=== PATIENT | male | born 1955 | race African-American/Black ===

== ENCOUNTER 2019-11-18 08:51 | Inpatient (IN) | payer OTHER ==
[~2019-11-18] VITALS: Ht 185.4 cm; Wt 81.0 kg
[2019-11-18 08:51] VITALS: BP 143/74
[2019-11-18] MEDS ORDERED: TOPROL XL100 MG PO ×2 (09:29→14:10)
[2019-11-18] MEDS ORDERED: BUTALB-APAP-CA1 EACH PO (09:29)
[2019-11-18] MEDS ORDERED: CARDIZEM SR 60M60 MG PO (09:29)
[2019-11-18] MEDS ORDERED: NORVASC 2.5 MG2.5 M1 PO (09:30)
[2019-11-18] MEDS ORDERED: OXYCONTIN10 M1 PO (09:30)
[2019-11-18 09:31] LABS: BASOPHILS 0.4 % (0.0-2.0); EOSINOPHILS 0.1 % (0.0-3.0); HEMATOCRIT 32.3 % (42.0-52.0); HEMOGLOBIN 10.9 gm/dL (14.0-18.0); LYMPHOCYTES 5.2 % (24.0-44.0); MCH 31.6 pg (26.0-34.0); MCHC 33.6 g/dL (28.0-37.0); MCV 94.1 fL (80.0-100.0); PLATELET COUNT 255 thou/uL (150-400); POLYS 86.3 % (36.0-66.0); RBC 3.44 mil/uL (4.50-6.00); RDW 19.1 % (10.5-14.5); WBC 9.3 thou/uL (4.0-11.0)
[2019-11-18 09:48] LABS: APTT 36.6 Seconds (24.5-32.8)
[2019-11-18 09:51] LABS: ALBUMIN 2.2 g/dL (3.4-5.0); ANION GAP 14 mmol/L (7-16); BUN 7 mg/dL (7-18); CALCIUM 7.9 mg/dL (8.5-10.1); CHLORIDE 106 mmol/L (98-107); CO2 20 mmol/L (21-32); CREATININE 0.8 mg/dL (0.7-1.3); DIRECT BILIRUBIN 0.3 mg/dL (<0.1-0.2); GLUCOSE 142 mg/dL (74-106); SGOT 10 U/L (15-37); SGPT 8 U/L (30-65); SODIUM 140 mmol/L (136-145); TOTAL BILIRUBIN 0.5 mg/dL (<0.1-1.0); TOTAL PROTEIN 5.8 g/dL (6.4-8.2); TROPONIN-I <0.06 ng/mL (<0.06)
[2019-11-18 09:53] LABS: POTASSIUM 2.6 mmol/L (3.5-5.1)
[2019-11-18 11:19] LABS: ANISOCYTOSIS 2+
[2019-11-18 12:55] LABS: URINE BILIRUBIN NEGATIVE (Negative); URINE BLOOD NEGATIVE (Negative); URINE CLARITY CLEAR; URINE COLOR YELLOW; URINE GLUCOSE-RANDOM* NEGATIVE (Negative); URINE KETONES NEGATIVE (Negative); URINE LEUKOCYTES-REFLEX TRACE (Negative); URINE NITRITE-REFLEX POSITIVE (Negative); URINE PROTEIN (DIPSTICK) NEGATIVE (Negative); URINE UROBILINOGEN 0.2 E.U./dl (0.2-1.0)
[2019-11-18 13:30] LABS: CASTS None Seen /LPF (None Seen); SQUAMOUS 0-3 Few /LPF (0-3)
[2019-11-18 13:31] LABS: BACTERIA-REFLEX >30 Many /HPF (None Seen); CRYSTALS None Seen /LPF (None Seen); URINE RBC None Seen /HPF (0-2); URINE WBC-REFLEX 0-5 Rare /HPF (0-5)
[2019-11-18] MEDS ORDERED: VITAMIN D21250 MCG PO (14:09)
[2019-11-18] MEDS ORDERED: DILTIAZEM ER240 M1 PO (14:10)
[2019-11-18] MEDS ORDERED: PRILOSEC OTC20 MG PO (14:10)
[2019-11-18] MEDS ORDERED: MIRALAX17 GM PO (14:11)
[2019-11-18] MEDS ORDERED: MUCINEX600 MG PO (14:11)
[2019-11-18] MEDS ORDERED: NORCO 10-325 T1 EACH PO (14:11)
[2019-11-18] MEDS ORDERED: AMLODIPINE BESY10 MG PO (14:11)
[2019-11-18] MEDS ORDERED: IRON325 PO (14:13)
[2019-11-18 14:41] LABS: CHOLESTEROL 190 mg/dL (<200); HDL CHOLESTEROL 124 mg/dL (>40); LDL CHOLESTEROL 53 mg/dL (<100); SERUM ASSESSMENT Clear; TC:HDL 1.5 Ratio (Not establshd); TRIGLYCERIDE 66 mg/dL (<150); VLDL 13 mg/dL (<40)
[2019-11-18 15:03] VITALS: BP 124/84
[2019-11-18 15:10] LABS: TSH 2.724 uIU/mL (0.358-3.740)
--- NOTE | 2019-11-18 15:15 | NUR ---
Attempted to call report on patient. Nurse unable to take report. Will call back
[2019-11-18 17:00] VITALS: BP 150/90
--- NOTE | 2019-11-18 18:24 | NUR ---
PATIENT ADMIT TO UNIT AT 1700. ALERT. CONFISED TALK TO SELF. PATIENT HAS LIQUID STOOL. CDIFF SEND. HR 128/M. ON CARDIZEM GTT. PARAPLEGIC WITH CONTRCTED BUE. ALSO C/O PAIN WITH TOUCH. VSS AFEBRILE. WILL KEEP MONITOR.
[2019-11-18 19:56] VITALS: BP 133/79
[2019-11-18 23:46] VITALS: BP 118/83
[2019-11-19] VITALS (17 sets, daily range): BP systolic 93–141; BP diastolic 48–90
[2019-11-19 04:54] LABS: HEMATOCRIT 28.3 % (42.0-52.0); HEMOGLOBIN 9.3 gm/dL (14.0-18.0); MCH 31.3 pg (26.0-34.0); MCHC 32.8 g/dL (28.0-37.0); MCV 95.7 fL (80.0-100.0); RBC 2.96 mil/uL (4.50-6.00); RDW 18.8 % (10.5-14.5); WBC 10.2 thou/uL (4.0-11.0)
--- NOTE | 2019-11-19 04:56 | NUR ---
ASSUMED CARE AT 1900. PT ALERT TO HIMSELF, BUT OTHERWISE DISORIENTED AND TALKING FREQ TO HIMSELF WITHOUT MAKING SENSE; SHIFT PROGRESSED, PT BECAME MORE CLEAR AND ANSWERED QUESTIONS APPROPRIATELY. PT GRIMACES AND CRIES OUT WITH ANY MOVEMENT TO HIS ARMS, BUT THE RIGHT SEEMS WORSE THAN THE LEFT, AND THERE IS DEPENDENT EDEMA IN RIGHT HAND; HE ALSO REPORTS CHRONIC PAIN IN HIS BACK. HAD ONE EPISODE OF GAGGING AND COUGHING AFTER EATING SOME PUDDING, CAUSING HIM TO THROW UP A SMALL AMOUNT. GRADUALLY DEVELOPED AUDIBLE, CONGESTED BREATHING, WITH COARSE SOUNDS ON LEFT; REDUCED FLUIDS TO 80 ML/HR FROM 125. PT HAS HAD THREE MEDIUM TO LARGE VERY LOOSE, INCONT STOOLS; C. DIFF RESULT IS STILL PENDING. HR WAS 120'S AT START OF SHIFT THEN UP TO 130-140 BY 2300; RESTARTED HOME METOPROLOL AND GAVE FIRST DOSE AT MIDNIGHT. HE ASKED FOR AND WAS ABLE TO URINATE INTO A URINAL THIS AM, HAD 200 ML OF VERY DARK YELLOW-BROWN URINE. NO OTHER CONCERNS, WILL CONTINUE TO MONITOR.
[2019-11-19 06:00] LABS: CALCIUM 7.5 mg/dL (8.5-10.1); CREATININE 0.7 mg/dL (0.7-1.3); MAGNESIUM 1.4 mg/dL (1.8-2.4)
[2019-11-19 06:16] LABS: POTASSIUM 2.6 mmol/L (3.5-5.1)
--- NOTE | 2019-11-19 07:56 | EKG ---
[facility] [place] [address] ELECTROCARDIOGRAM REPORT Name: PARESH MALAGON Room #: 359-P ADM IN M.R.#: [id number] Admission: 11/18/19 Attend Phys: Josué Skinner Discharge: Date of : 57 Report #: [id number] THIS REPORT FOR: cc: FAM - Family physician unknown FAM - Family physician unknown Eduardo Salazar MD [facility] THIS REPORT FOR: //name// [facility] ED Test Date: 2019-11-18 Test Time: 09:00:40 Pat Name: PARESH MALAGON Department: Room: [facility] Gender: M Desk Pen Set Assembler: sis : 1955 Requested By: Marga Shook Order Number: [id number] MD: Eduardo Salazar Measurements Intervals [place] Rate: 149 P: 49 NE: 135 QRS: 39 QRSD: 99 T: 232 QT: 282 QTc: 444 Interpretive Statements Probable atrial flutter with 2:[address] and T wave abnormality No previous ECG available for comparison Electronically Signed On 11-19-2019 7:54:44 CDT by Eduardo Salazar [email or web address] <ELECTRONICALLY SIGNED> By: Eduardo Salazar MD, FACC 11/19/19 0754 0900 0900 Eduardo Salazar MD, [facility] /EPI
[2019-11-19 13:33] LABS: BE(vivo) -6.2 mmol/L (-2 to +3); HCO3 16.3 mmol/L (22.0-26.0); PCO2 23.7 mmHg (35.0-45.0); PO2 35.5 mmHg (80.0-100.0); pH 7.456 (7.360-7.450); sO2 72.9 % (92.0-98.0)
[2019-11-19 13:44] LABS: HEMATOCRIT 29.8 % (42.0-52.0); HEMOGLOBIN 9.5 gm/dL (14.0-18.0); MCH 30.5 pg (26.0-34.0); MCV 95.5 fL (80.0-100.0); RBC 3.13 mil/uL (4.50-6.00); RDW 19.1 % (10.5-14.5); WBC 12.3 thou/uL (4.0-11.0)
[2019-11-19 13:49] LABS: CALCIUM 7.7 mg/dL (8.5-10.1); CREATININE 0.9 mg/dL (0.7-1.3)
[2019-11-19 13:51] LABS: POTASSIUM 2.9 mmol/L (3.5-5.1)
--- NOTE | 2019-11-19 14:13 | NUR ---
ASSUMED PATIENT CARE AT 0700. GETTING MORE ALERT TODAY BUT CHELSEA LUNG SOUND COARSE. HAS LIQUID STOOL. INSERT FMS AT 1200. NOTED PATIENT HAS INCREAED RR AT 1300 WITH O2 SAT 72-75% AFTER TURNED PATIENT TO LEFTSIDE. OFFBEARER SEWER PIPE INITIATED AT 1300. STAT ORDER RESULTS REPORTED TO DR HAN. NEW ORDER RECEIVED. PATIENT IS ON 15L NRB MASK NOW WITH 02 SAT 94%. PATIENT DENIES ANY CHEST PAIN. WILL KEEP MONIOR.
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
--- NOTE | 2019-11-19 16:42 | NUR ---
ASPHALT TAMPING MACHINE OPERATOR activated at 1300-see flowsheet. ASPHALT TAMPING MACHINE OPERATOR activated again at 1600-pt transferred to ICU
[2019-11-19 16:43] LABS: BE(vivo) -8.9 mmol/L (-2 to +3); HCO3 15.4 mmol/L (22.0-26.0); PCO2 28.3 mmHg (35.0-45.0); PO2 116.6 mmHg (80.0-100.0); pH 7.354 (7.360-7.450); sO2 98.2 % (92.0-98.0)
--- NOTE | 2019-11-19 16:51 | NUR ---
1615- PATIENT ARRIVED TO ICU, WAS SETTLED INTO BED, PLACED ON BIPAP, BATH GIVEN.
--- NOTE | 2019-11-19 16:52 | NUR ---
1650- PATIENT ABG NOTED. CONSULT FOR PULMONARY PLACED. REPORT OBTAINED. ASSESSMENT PERFORMED. VITAL SIGNS NOTED. PATIENT RESPIRATORY RATE 30-45 BPM. WAITING PULMONARY ORDERS. WILL ASK FOR JETT. WILL PERFORM BLADDER SCAN FIRST, PREVIOUS RN EXPRESSED HE HAS NOT VOIDED.
--- NOTE | 2019-11-19 18:21 | NUR ---
2963- RN TALKED WITH PATIENTS SPOKES PERSON, SISTER REID, ABOUT PATIENT STATUS, NEED FOR A PICC LINE WITH RISKS AND BENEFITS. SHE TALKED TO ANOTHER FAMILY MEMBER WHO SHE EXPRESSED IS AN RN AND THEY AGREE TO HAVE THE PICC LINE PLACED AND UNDERSTAND ITS NEED VS RISK. NURSE TO CONTINUE TO MONITOR PATIENT STATUS.
[2019-11-19 18:37] LABS: ABSOLUTE NEUTROPHILS 5.4 thou/uL (1.4-8.2); BASOPHILS 0.3 % (0.0-2.0); EOSINOPHILS 0.1 % (0.0-3.0); HEMATOCRIT 31.6 % (42.0-52.0); HEMOGLOBIN 10.2 gm/dL (14.0-18.0); LYMPHOCYTES 12.2 % (24.0-44.0); MCH 31.4 pg (26.0-34.0); MCHC 32.2 g/dL (28.0-37.0); MCV 97.3 fL (80.0-100.0); MONOCYTES 9.8 % (1.0-8.0); PLATELET COUNT 278 thou/uL (150-400); POLYS 77.6 % (36.0-66.0); RBC 3.25 mil/uL (4.50-6.00); RDW 19.6 % (10.5-14.5); WBC 6.9 thou/uL (4.0-11.0)
[2019-11-19 18:39] LABS: CALCIUM 7.2 mg/dL (8.5-10.1); CREATININE 0.9 mg/dL (0.7-1.3)
[2019-11-19 18:45] LABS: ALBUMIN 1.7 g/dL (3.4-5.0); TOTAL BILIRUBIN 0.3 mg/dL (<0.1-1.0); TOTAL PROTEIN 4.6 g/dL (6.4-8.2)
[2019-11-19 18:46] LABS: POTASSIUM 3.9 mmol/L (3.5-5.1)
--- NOTE | 2019-11-19 19:18 | NUR ---
VASCULAR ACCESS CONSULTED FOR PICC LINE, PT'S LABS,MEDS,HISTORY,ORDER ,CONSENT VERIFIED. ALBERT BRACHIAL WIDELY PATENT WITH USG.55CM TL POWER PICC INSERTED TO 4CM EXTERNAL. STAT CXR ORDERED. PT TOLERATED WELL.
--- NOTE | 2019-11-19 19:39 | NUR ---
cxr confirmed picc placement ,released for immediate use per protocol
[2019-11-19 19:57] LABS: BE(vivo) -10.8 mmol/L (-2 to +3); HCO3 13.6 mmol/L (22.0-26.0); PCO2 25.7 mmHg (35.0-45.0); pH 7.341 (7.360-7.450); sO2 85.7 % (92.0-98.0)
[2019-11-19 21:01] LABS: INR 1.1; PROTIME 10.9 Seconds (9.3-11.4)
[2019-11-19 21:11] LABS: APTT 56.3 Seconds (24.5-32.8)
[2019-11-19 22:43] LABS: ANION GAP 16 mmol/L (7-16); BUN 15 mg/dL (7-18); CALCIUM 7.4 mg/dL (8.5-10.1); CHLORIDE 112 mmol/L (98-107); CO2 15 mmol/L (21-32); GLUCOSE 97 mg/dL (74-106); POTASSIUM 3.3 mmol/L (3.5-5.1); SODIUM 143 mmol/L (136-145)
[2019-11-19 23:34] LABS: TROPONIN-I <0.06 ng/mL (<0.06)
[2019-11-20] VITALS (50 sets, daily range): BP systolic 92–139; BP diastolic 53–88
[2019-11-20 00:36] LABS: URINE BILIRUBIN NEGATIVE (Negative); URINE BLOOD NEGATIVE (Negative); URINE CLARITY CLEAR; URINE COLOR YELLOW; URINE GLUCOSE-RANDOM* NEGATIVE (Negative); URINE KETONES NEGATIVE (Negative); URINE LEUKOCYTES-REFLEX NEGATIVE (Negative); URINE NITRITE-REFLEX NEGATIVE (Negative); URINE PROTEIN (DIPSTICK) TRACE (Negative); URINE SPECIFIC GRAVITY >= 1.030 (1.005-1.035); URINE UROBILINOGEN 0.2 E.U./dl (0.2-1.0)
[2019-11-20 04:27] LABS: CREATININE 0.9 mg/dL (0.7-1.3); MAGNESIUM 1.8 mg/dL (1.8-2.4); POTASSIUM 3.2 mmol/L (3.5-5.1)
[2019-11-20 05:11] LABS: BE(vivo) -14.2 mmol/L (-2 to +3); HCO3 11.7 mmol/L (22.0-26.0); PCO2 27.6 mmHg (35.0-45.0); PO2 300.9 mmHg (80.0-100.0); sO2 99.6 % (92.0-98.0)
[2019-11-20 05:12] LABS: pH 7.244 (7.360-7.450)
[2019-11-20 06:31] LABS: HEMATOCRIT 28.3 % (42.0-52.0); HEMOGLOBIN 9.2 gm/dL (14.0-18.0); MCH 31.6 pg (26.0-34.0); MCHC 32.4 g/dL (28.0-37.0); MCV 97.6 fL (80.0-100.0); RBC 2.9 mil/uL (4.50-6.00); RDW 18.7 % (10.5-14.5); WBC 7.6 thou/uL (4.0-11.0)
--- NOTE | 2019-11-20 06:44 | NUR ---
1944-3 HOUR REASSESSMENT: SEPSIS PROTOCOL. DR. RUANO NOTIFIED THAT PATIENT IS NOT PROGRESSING TOWARDS GOALS OF CARE. MAP 76, LACTATE 1.7, NO URINE OUTPUT AT THIS TIME. BMP DRAWN AND SENT TO LAB. 2044-AT APPROX THIS TIME, DR. RUANO TO THE BEDSIDE TO INTUBATE. BLOOD GAS RESULTS SHOWED NO IMPROVEMENT DESPITE BIPAP THERAPY. BLOOD PRESSURES SOFT AFTER INTUBATION. PROPOFOL AND LEVOPHED GTT INTITIATED. 0600-SPOKE WITH SISTER OF THE PATIENT, REID. UPDATED TO PATIENT HAVING BEEN INTUBATED AND ON MINIMAL PRESSOR SUPPORT. SHE VOICED NO ISSUES OR CONCERNS AND WAS GRATEFUL FOR THE UPDATE. WILL REPORT OFF TO DAY SHIFT RN.
--- NOTE | 2019-11-20 07:52 | NUR ---
ORDERS FOR EVAL AND TREAT HOWEVER Pt TRANSFERRED TO ICU. WILL PLACY ON HOLD AND AWAIT NEW ORDERS WHEN APPROPRIATE FOR THERAPY
--- NOTE | 2019-11-20 08:53 | EKG ---
[facility] [place] [address] [place] [address] ELECTROCARDIOGRAM REPORT Name: PARESH MALAGON Room #: 236-P ADM IN M.R.#: [id number] Admission: 11/18/19 Attend Phys: Josué Skinner Discharge: Date of : 57 Report #: [id number] THIS REPORT FOR: cc: FAM - Family physician unknown FAM - Family physician unknown Eduardo Salazar MD [facility] ~ THIS REPORT FOR: //name// [facility] Test Date: 2019-11-19 Test Time: 13:10:06 Pat Name: PARESH MALAGON Department: Room: [facility] Gender: M Legal Recovery Specialist: Vivian CHOI : 1955 Requested By: Josué Skinner Order Number: [id number] MD: Eduardo Salazar Measurements Intervals [place] Rate: 95 P: 94 SC: 133 QRS: 29 QRSD: 110 T: 106 QT: 366 QTc: 460 Interpretive Statements Sinus rhythm Poor R wave progression Nonspecific ST and T wave abnormality No previous ECGs available for comparison Electronically Signed On 11-20-2019 8:51:19 CDT by Eduardo Salazar [email or web address] <ELECTRONICALLY SIGNED> By: Eduardo Salazar MD, FACC 11/20/19 0851 1310 1310 Eduardo Salazar MD, [facility] /EPI
[2019-11-20 10:02] LABS: CALCIUM 7.6 mg/dL (8.5-10.1); CREATININE 0.9 mg/dL (0.7-1.3); POTASSIUM 3.3 mmol/L (3.5-5.1)
[2019-11-20 12:02] LABS: BE(vivo) -10.5 mmol/L (-2 to +3); HCO3 14.1 mmol/L (22.0-26.0); PCO2 26.9 mmHg (35.0-45.0); PO2 129.5 mmHg (80.0-100.0); pH 7.336 (7.360-7.450); sO2 98.5 % (92.0-98.0)
[2019-11-20 14:29] LABS: ABSOLUTE NEUTROPHILS 3.6 thou/uL (1.4-8.2); BASOPHILS 0.2 % (0.0-2.0); HEMOGLOBIN 8.5 gm/dL (14.0-18.0); LYMPHOCYTES 7.1 % (24.0-44.0); MCH 31.5 pg (26.0-34.0); MCHC 32.8 g/dL (28.0-37.0); MCV 95.9 fL (80.0-100.0); MONOCYTES 4.8 % (1.0-8.0); POLYS 87.9 % (36.0-66.0); RBC 2.71 mil/uL (4.50-6.00); RDW 18.4 % (10.5-14.5); WBC 4.1 thou/uL (4.0-11.0)
[2019-11-20 14:35] LABS: PLATELET COUNT 229 thou/uL (150-400)
[2019-11-20 14:39] LABS: ALBUMIN 1.4 g/dL (3.4-5.0); CALCIUM 7.6 mg/dL (8.5-10.1); CREATININE 0.8 mg/dL (0.7-1.3); PHOSPHORUS 3.7 mg/dL (2.5-4.9); POTASSIUM 3.1 mmol/L (3.5-5.1)
--- NOTE | 2019-11-20 15:18 | NUR ---
SW reviewed chart and spoke with attending physician. Pt was transferred to ICU from 3W yesterday after [facility] due to respiratory distress. Pt is in Enhanced Isolation. Pt has had two negative COVID-19 tests. Pt is currently intubated. Therapy evals are on hold at this time. Will need new orders for therapy when pt is able to participated. 5N consult ordered. Pt normally lives at home and has daily in-home care through his [place]. No weekend discharge planned. JUDY is following to assist as needed with discharge planning.
--- NOTE | 2019-11-20 16:47 | NUR ---
INTUBATED, FIO2 DOWN TO 40%. AFEBRILE. SEDATED WITH PROPOFOL BUT EASILY AWAKENED AND FOLLOWS COMMANDS. REMAINED IN SINUS RHYTHM TODAY, HR 80-100. OFF LEVOPHED AT 10AM AND BP STABLE.
--- NOTE | 2019-11-20 19:49 | NUR ---
1919-PATIENT ON 70 MCG/KG/MIN OF PROPOFOL AT THIS TIME; HOWEVER, IS RESTLESS AND REACH FOR HIS ET TUBE. PATIENT IS COUGHING AND TACHYPNEIC. PT SUCTIONED BY RESP. THERAPIST. FORMS BUILDER, MICHEAL COWAN, NOTIFIED. NEW ORDERS RECEIVED FOR RESTRAINTS. PROPOFOL GTT TITRATED TO 80 MCG/KG/MIN AND RESTRAINTS APPLIED.
[2019-11-20 21:26] LABS: CALCIUM 8.2 mg/dL (8.5-10.1); CREATININE 0.9 mg/dL (0.7-1.3); POTASSIUM 3.6 mmol/L (3.5-5.1)
[2019-11-21] VITALS (32 sets, daily range): BP systolic 96–153; BP diastolic 65–103
[2019-11-21 01:07] LABS: HIV ANTIBODY Non Reactive (Non Reactive)
[2019-11-21 02:23] LABS: ABSOLUTE NEUTROPHILS 3.5 thou/uL (1.4-8.2); BASOPHILS 0.2 % (0.0-2.0); HEMATOCRIT 26.1 % (42.0-52.0); HEMOGLOBIN 8.4 gm/dL (14.0-18.0); LYMPHOCYTES 8.1 % (24.0-44.0); MCHC 32.3 g/dL (28.0-37.0); MONOCYTES 4.9 % (1.0-8.0); PLATELET COUNT 258 thou/uL (150-400); POLYS 86.8 % (36.0-66.0); RBC 2.72 mil/uL (4.50-6.00); RDW 18.6 % (10.5-14.5)
[2019-11-21 02:31] LABS: CALCIUM 7.9 mg/dL (8.5-10.1); CREATININE 0.9 mg/dL (0.7-1.3); POTASSIUM 3.5 mmol/L (3.5-5.1)
--- NOTE | 2019-11-21 04:35 | NUR ---
PATIENT REMAINS INTUBATED AND SEDATED. PATIENT REQUIRED RESTRAINTS DUE TO RESTLESSNESS AND ATTEMPTS TO PULL ET TUBE. PATIENT OPENS EYES SPONTANEOUSLY AND FOLLOWS COMMANDS. VITALS AND ASSESSMENT CHARTED. SPOKE WITH PATIENT'S SISTER, REID AT THE START OF THE SHIFT AND UPDATED HER.
--- NOTE | 2019-11-21 08:46 | NUR ---
RN assumed care at 0700. PT opened his eyes spontaneously and followed commands with propofol running at 50 mcs/kg/hr. VSS. See reassessment for further details. RN spoke with Dr. Pittman with infectious disease and asked about discontinuing enhanced precautions for PT. Dr. Pittman stated he would if the PT had shown significant improvement in his medical status. Provider stated since the PT has not improved enough we will continue enhanced precautions and revisit tomorrow. Fall precautions in place. RN will continue to monitor.
--- NOTE | 2019-11-21 14:28 | NUR ---
RN spoke with Dr. Cagle at bedside in regards to PT status. RN informed provider that the PT is on 60 mcs/kg/h of propofol and is still following commands, opening eyes spontaneously, is tachycardiac, and tachypneic. Dr. Cagle verbalized understanding and told RN to initiate versed and fentanyl gtts and try to titrate the propofol gtt down. RN verbalized understanding. Fall precautions in place. RN will continue to monitor.
--- NOTE | 2019-11-21 15:32 | NUR ---
RN spoke with Dr. Skinner in regards to PT condition. PT had been experiencing sustained sinus tachycardia in the 140s after additional sedation was ordered. Provider ordered 5mg IVP Lopressor Q6H with first dose now. RN verbalized understanding. Lopressor was given at 1320. PT's heart rate decreased to 116. Will continue to monitor.
[2019-11-22] VITALS (47 sets, daily range): BP systolic 131–175; BP diastolic 77–107
--- NOTE | 2019-11-22 04:37 | NUR ---
PT ON PROPOFOL VERSED, AND FENTANYL GTT. SEDATION VACATION AT 2123 AND LASTED 13 MINUTES. PT OPENED HIS EYES SPONTANEOUSLY, DOESNT FOLLOW COMMANDS BUT WOULD SPONTENEOUSLY MOVE HIS LEFT HAND AND BILATERAL LEGS. HE ALSO FACIAL GRIMACES TO PAIN UPON SUCTIONING. PT HAS +VE COUGH AND GAG REFLEX. ATTEMPTED TO WEAN DOWN PROPOFOL AND TURNED IT DOWN TO 30MCG FROM 40 AT 2140. PT BECAME HYPERTENSIVE AND TACHYCARDIC HENCE PROPOFOL TURNED BACK UP TP 40MCG AT 0000. BATH GIVEN THIS SHIFT. PT IS STABLE. U/O>40ML/HR. WILL CONTINUE TO CLOSELY MONITOR.
[2019-11-22 06:00] LABS: HEMOGLOBIN 8.1 gm/dL (14.0-18.0); MCH 31.2 pg (26.0-34.0); MCHC 32.6 g/dL (28.0-37.0); MCV 95.7 fL (80.0-100.0); RBC 2.61 mil/uL (4.50-6.00); RDW 18.7 % (10.5-14.5); WBC 2.9 thou/uL (4.0-11.0)
[2019-11-22 06:15] LABS: ALBUMIN 1.6 g/dL (3.4-5.0); CALCIUM 8.3 mg/dL (8.5-10.1); CREATININE 0.8 mg/dL (0.7-1.3); PHOSPHORUS 3.7 mg/dL (2.5-4.9); POTASSIUM 3.6 mmol/L (3.5-5.1)
--- NOTE | 2019-11-22 15:05 | NUR ---
5500- DR. RUANO ROUNDED ON PATIENT. PHYSICIAN UPDATED ON VITAL SIGNS, CVP READINGS, URINE OUTPUT, AND PLAN OF CARE. PHYSICIAN EXPRESSED WOULD LIKE A CPAP TRIAL TODAY, DISCONTINUE CVP. REQUEST TO MOVE OUT OF NEGATIVE PRESSURE ROOM, AND START HYDRALAZINE PER CLINICAL PARAMTERS STATED. WILL CONTINUE TO MONITOR.
--- NOTE | 2019-11-22 16:08 | NUR ---
1600- PATIENT MOVED TO ROOM 238 PER PHYSICIAN ORDER. TRANSFER WITHOUT COMPLICATIONS. PATIENT STARTING TO WAKE UP MORE, OPENED EYES. PROPOFOL IS OFF. ONCE PATIENT MORE ALERT, PLAN FOR CPAP TRIAL.
--- NOTE | 2019-11-22 16:50 | NUR ---
1650- CPAP TRIAL STARTED.
--- NOTE | 2019-11-22 19:13 | NUR ---
PATIENT PROGRESSING TOWARDS PLAN OF CARE. NURSE TALKED WITH PATIENTS SPOKESPERSON AND UPDATED HER ON PLAN OF CARE AND PATIENT PROGRESS. PATIENT ON CPAP TRIAL AT THIS TIME. CPAP TRIAL, HEART RATE MORE TACHYCARDIC WITH HEART RATE <110 BPM, BUT ABOVE 100. HYPERTENSION MORE CONTROLED PRN MEDICATION GIVEN. SBP <160MMHG. HE IS DROWSY BUT ABLE TO WAKE UP, OPENS EYES, AND FOLLOWS COMMANDS INTERMITTENTLY. SEDATION TITRATED DOWN TO MOSTLY OFF THROUGHOUT THE DAY. HE GRIMACES AND NODS YES TO PAIN. RESPIRATORY RATE IS <20 BPM. HE APPEARS TO TOLERATE CPAP TRIAL, HOWEVER HE REMAINDS DROWSY.
[2019-11-23] VITALS (28 sets, daily range): BP systolic 113–196; BP diastolic 72–124
[2019-11-23 02:16] LABS: BE(vivo) -7.2 mmol/L (-2 to +3); HCO3 17.1 mmol/L (22.0-26.0); PCO2 30.4 mmHg (35.0-45.0); pH 7.367 (7.360-7.450); sO2 88.5 % (92.0-98.0)
[2019-11-23 02:17] LABS: PO2 55.5 mmHg (80.0-100.0)
--- NOTE | 2019-11-23 03:00 | NUR ---
ASSUMED CARE OF PATIENT AT 1900. MINIMAL SEDATION, OPENS EYES. 2200 O2 SATS START TO DECLINE, FREQUENT ORAL SUCTIONING NEEDED. RT NOTIFIED, FI02 INCREASED TO 75%. BECAME INCREASINGLY TACHYCARDIC, PLASTIC MACHINE OPERATOR NOTIFIED. ORDERS RECIEVED FOR ONE TIME DOSE METOPROLOL. 0100, O2 SATS CONTINUE TO DROP, RT INCREASED FIO2 TO 100%. DR RUANO NOTIFIED OF CHANGE IN STATUS. ORDERS TO INCREASE PEEP. ORDERS OBTAINED FOR ABG AND CXR. 0300 O2 SATS IMPROVING, PEEP REMAINS AT 10, FI02 100%. THROUGHOUT ALL OF THIS, PATIENT REMAINS CALM. URINE OUTPUT MARGINAL.
[2019-11-23 06:22] LABS: HEMOGLOBIN 9.9 gm/dL (14.0-18.0); MCH 31.3 pg (26.0-34.0); MCHC 33.1 g/dL (28.0-37.0); MCV 94.4 fL (80.0-100.0); RBC 3.18 mil/uL (4.50-6.00); RDW 18.3 % (10.5-14.5); WBC 4.4 thou/uL (4.0-11.0)
[2019-11-23 06:51] LABS: CALCIUM 7.6 mg/dL (8.5-10.1); POTASSIUM 4.7 mmol/L (3.5-5.1)
[2019-11-23 06:54] LABS: CREATININE 3.5 mg/dL (0.7-1.3)
[2019-11-23 13:52] LABS: BE(vivo) -8.6 mmol/L (-2 to +3); HCO3 15.7 mmol/L (22.0-26.0); pH 7.352 (7.360-7.450); sO2 90.4 % (92.0-98.0)
[2019-11-23 13:58] LABS: HEMATOCRIT 26.1 % (42.0-52.0); HEMOGLOBIN 8.6 gm/dL (14.0-18.0); MCH 31.2 pg (26.0-34.0); MCHC 32.8 g/dL (28.0-37.0); MCV 95.1 fL (80.0-100.0); RBC 2.75 mil/uL (4.50-6.00); RDW 18.1 % (10.5-14.5); WBC 4.1 thou/uL (4.0-11.0)
[2019-11-23 14:14] LABS: CALCIUM 7.3 mg/dL (8.5-10.1)
[2019-11-23 14:15] LABS: APTT 39.2 Seconds (24.5-32.8)
[2019-11-23 14:22] LABS: CREATININE 0.8 mg/dL (0.7-1.3); POTASSIUM 3.4 mmol/L (3.5-5.1)
--- NOTE | 2019-11-23 19:20 | NUR ---
CALLED DR RUANO THIS AFTERNOON 1430 REGARDING PT DELTA LAB CHANGES AND LOW URINE OUTPUT. ORDERS RECEIVED FOR BOLUS AND LASIX. HE STATED TO CALL BACK IN 2 HOURS WITH UPDATE ON UO AND STATUS. CALLED AT 1630 TO REPORT PT HAD PUT OUT 800 ML SINCE BOLUS AND LASIX. PER DR RUANO CALL BACK IF URINE OUTPUT DROPS AGAIN
[2019-11-24] VITALS (26 sets, daily range): BP systolic 127–191; BP diastolic 76–119
--- NOTE | 2019-11-24 04:11 | NUR ---
PT ON FENTANYL AND VERSED GTT AT 35MCG AND 2MG RESPECTIVELY. PT RANDOMLY OPENS EYES, HAS POSITIVE COUGH AND GAG REFLEX. HIGHER SYSTOLIC BP BTW 150 AND 170S ALL NOC; HYDRALIZINE GIVEN IN ADDITION TO SCHEDULED METOPROLOL. PT ALSO SLIGHTLY TACHYCARDIC WITH HR IN BTW 110s AND 120s WHEN IT WAS HIGH. PT IS STABLE. GOT A BATH THIS SHIFT. U/O> 30ML/HR. PT IS SLOWLY PROGRESSING TOWARDS POC GOALS.
[2019-11-24 05:38] LABS: BE(vivo) -7.5 mmol/L (-2 to +3); HCO3 16.5 mmol/L (22.0-26.0); PCO2 28.8 mmHg (35.0-45.0); PO2 90.4 mmHg (80.0-100.0); pH 7.375 (7.360-7.450); sO2 96.9 % (92.0-98.0)
[2019-11-24 05:59] LABS: HEMATOCRIT 28.7 % (42.0-52.0); HEMOGLOBIN 9.5 gm/dL (14.0-18.0); MCH 31.3 pg (26.0-34.0); MCHC 33.1 g/dL (28.0-37.0); MCV 94.4 fL (80.0-100.0); RBC 3.04 mil/uL (4.50-6.00); RDW 18.7 % (10.5-14.5); WBC 3.2 thou/uL (4.0-11.0)
[2019-11-24 08:29] LABS: CALCIUM 7.5 mg/dL (8.5-10.1); CREATININE 0.7 mg/dL (0.7-1.3); POTASSIUM 3.3 mmol/L (3.5-5.1)
--- NOTE | 2019-11-24 10:14 | NUR ---
If ileus has resolved recommend start tube feeding of vital AF 1.2 at 25ml/hr with goal of 70ml/hr. Will need water flushes whenever IV maintenance fluids discontinue
--- NOTE | 2019-11-24 13:31 | 2DMMODE ---
[facility] [place] [address] 2 D/M-MODE ECHOCARDIOGRAM Name: PARESH MALAGON Room #: 238-P ADM IN M.R.#: [id number] Admission: 11/18/19 Attend Phys: Josué Skinner Discharge: Date of : 57 Report #: [id number] THIS REPORT FOR: cc: FAM - Family physician unknown FAM - Family physician unknown Eduardo Salazar MD [facility] ~ APPROVED REPORT Study performed: 11/24/2019 10:23:40 EXAM: Comprehensive 2D, Doppler, and color-flow Echocardiogram Patient Location: ICU Room #: 238 Status: routine BSA: 2.07 HR: 113 bpm BP: 131/84 mmHg Other Information Study Quality: Fair Indications Sepsis Tachycardia pneumonia 2D Dimensions RVDd: 31.33 mm IVSd: 12.20 (7-11mm) LVDd: 39.99 mm PWd: 12.41 (7-11mm) LVDs: 15.99 (25-40mm) Aortic Root: 36.05 mm Volumes Left Atrial Volume (Systole) Single Plane 4CH: 28.63 mL Single Plane 2CH: 32.93 mL Aortic Valve AoV Peak Shay.: 1.27 m/s AO Peak Gr.: 6.77 mmHg LVOT Max P.72 mmHg LVOT Max V: 0.42 m/s Mitral Valve [facility] [address] [place] [address] 2 D/M-MODE ECHOCARDIOGRAM Name: PARESH MALAGON Room #: 238-P ADM IN M.R.#: [id number] Admission: 11/18/19 Attend Phys: Josué Barcenas Discharge: Date of : 57 Report #: [id number] MV Decel. Time: 150.49 ms MV E Max Shay.: 0.45 m/s IVRT: 114.19 ms Pulmonary Valve PV Peak Shay.: 1.25 m/s PV Peak Gr.: 6.24 mmHg Tricuspid Valve TR Peak Shay.: 2.11 m/s RAP Estimate: 5.00 mmHg TR Peak Gr.: 17.84 mmHg PA Pressure: 23.00 mmHg Left Ventricle Somewhat limited study due to no apical window. Tachycardia (rates in 110s). The left ventricle is normal size. Regional wall motion is not well visualized but grossly normal. Mild concentric left ventricular hypertrophy. Left ventricular systolic function is hyperdynamic. LVEF is 65-70%. This study is not technically sufficient to allow evaluation of the LV diastolic function. Right Ventricle The right ventricle is normal size. The right ventricular systolic function is normal. Atria The left atrium size is normal. The right atrium size is normal. Aortic Valve Aortic valve is not well visualized. No obvious regurgitation. There is no aortic valvular stenosis. Mitral Valve Mitral valve is not well visualized. No obvious regurgitation. Tricuspid Valve The tricuspid valve is normal in structure. Trace tricuspid regurgitation. Estimated pulmonary artery pressure of 23 mmHg. Pulmonic Valve Pulmonic valve is not well visualized. Normal by Doppler data. No obvious regurgitation. Great Vessels [facility] [address] [place] [address] 2 D/M-MODE ECHOCARDIOGRAM Name: PARESH MALAGON Room #: 238-P [facility] IN M.R.#: [id number] Admission: 11/18/19 Attend Phys: Josué Barcenas Discharge: Date of : 57 Report #: [id number] The aortic root is normal in size. Ascending aorta is not well visualized. IVC is normal in size and collapses >50% with inspiration. Patient is mechanically ventilated. Pericardium There is no pericardial effusion. <Conclusion> Technically limited study Left ventricular systolic function is hyperdynamic. Regional wall motion is not well visualized but grossly normal. LVEF is 65-70%. Aortic valve is not well visualized, grossly normal. No obvious regurgitation or stenosis. Mitral valve is not well visualized, grossly normal. No obvious regurgitation. Pulmonary artery systolic pressure could not be reliably ascertained There is no pericardial effusion. <ELECTRONICALLY SIGNED> By: Eduardo Salazar MD, [facility] 11/24/19 1329 28 28 Eduardo Salazar MD, FACC /INF
--- NOTE | 2019-11-24 15:52 | NUR ---
JUDY reviewed chart and spoke with attending physician. Pt remains in ICU and intubated. Cpap trials continue. SW spoke with pt's sister, Marquita, via phone to provide update. JUDY explained that pt will need therapy evals ordered when pt is able to participate. Pt's sister states that family would be agreeable for inpt acute rehab if needed prior to returning home. SW notified 5N liaison to follow pt when therapy evals have been completed. Pt has [place]-Medicaid [place]. JUDY is following to assist as needed with discharge planning.
--- NOTE | 2019-11-24 17:46 | NUR ---
PICC WAS ACCIDENTLY PULLED OUT IN ROUTE TO CT SCAN. NEW ORDER AND CONSENT OBTAINED. ALBERT BRACHIAL WAS WIDELY PATENT WITH USG. 5FR TL POWER PICC TRIMMED TO 47CM INSERTED TO 0CM. PT TOLERATED WELL. STAT CXR ORDERED
--- NOTE | 2019-11-24 19:07 | NUR ---
2nd CXR confirmed PICC in lower SVC, released for immediate use per protocol to Xin FITZGERALD
--- NOTE | 2019-11-24 19:45 | NUR ---
INTUBATED AND SEDATED, FOLLOWS SIMPLE COMMANDS. FIO2 DOWN TO .60. CTA OF CHEST COMPLETED. ALBERT TLC PICC ACCIDENTLY DISLODGED ON WAY TO CT, NEW ORDER RECIEVED AND NEW PICC PLACED AND VERIFIED.
[2019-11-24 23:07] LABS: ADENOVIRUS Negative (Negative); INFLUENZA A Negative (Negative); INFLUENZA B Negative (Negative); METAPNEUMOVIRUS Negative (Negative); PARAINFLUENZA 1 Negative (Negative); PARAINFLUENZA 2 Negative (Negative); PARAINFLUENZA 3 Negative (Negative); RHINOVIRUS Negative (Negative); RSV A Negative (Negative); RSV B Negative (Negative)
[2019-11-25] VITALS (26 sets, daily range): BP systolic 108–189; BP diastolic 57–129
[2019-11-25 02:25] LABS: POTASSIUM 3.8 mmol/L (3.5-5.1)
[2019-11-25 04:59] LABS: BE(vivo) -6.4 mmol/L (-2 to +3); HCO3 18.6 mmol/L (22.0-26.0); PCO2 34.9 mmHg (35.0-45.0); PO2 144.1 mmHg (80.0-100.0); pH 7.344 (7.360-7.450); sO2 98.7 % (92.0-98.0)
[2019-11-25 09:00] LABS: BE(vivo) -7.5 mmol/L (-2 to +3); HCO3 16.5 mmol/L (22.0-26.0); PCO2 28.8 mmHg (35.0-45.0); PO2 110.7 mmHg (80.0-100.0); pH 7.375 (7.360-7.450)
--- NOTE | 2019-11-25 16:54 | NUR ---
SW reviewed chart and spoke with attending physician. Pt is in Enhanced Precautions. Pt has had two negative COVID-19 tests. Repeat test is pending. Pt is intubated and have orders for bronchoscopy. Pt may need trach/peg placement per attending. SW is following to assist as needed with discharge planning.
--- NOTE | 2019-11-25 18:44 | NUR ---
PT IS CONTINUING ET TUBE WITH VENTILATOR , A/C MODE , O2 40%, PT IS ON BOTH WRIST SOFT RESTRAAINTS, PT'S VS AND O2SAT ARE STABLE , PT IS IN IV MEDICATIONS ( FANTANYL AND VERSED ) SEDATION TO ACHIEVE RASS OF -1 BY TITRATION PER ORDER, PT HAS BRONCHOSCOPY DONE TODAY, PT IS TOLERATED , PT STARTS TUBE FEEDING 25ML/HR AT 1700PM , PT DOES NOT HAVE N/V BY THIS TIME.
--- NOTE | 2019-11-25 19:29 | NUR ---
PT'S COVID WAS NEGATIVE FROM 11/24/19 TEST, PT'S ENHANCED PRECAUTION HAS DC PER ID FATOUMATA EVALUATION.
[2019-11-26] VITALS (27 sets, daily range): BP systolic 123–179; BP diastolic 64–95
--- NOTE | 2019-11-26 01:30 | NUR ---
PATIENTS CARE WAS ASSUMED AT 0130. PATIENT WAS A TRANSFER FROM [facility]OD [facility]. PATIENT WAS ASSESSED AND MONITERED HOURLY. PATIENT RIGHT EYE WOULD NOT STAY CLOSED AND NURSING TAPED HIS RIGHT LID CLOSED TO AVOID A CORNEAL ABRASION. WILL CONTINUE TO MONITOR.
[2019-11-26 09:32] LABS: HEMATOCRIT 26.2 % (42.0-52.0); HEMOGLOBIN 8.6 gm/dL (14.0-18.0); MCH 30.9 pg (26.0-34.0); MCHC 32.8 g/dL (28.0-37.0); MCV 94.2 fL (80.0-100.0); RBC 2.78 mil/uL (4.50-6.00); RDW 18.8 % (10.5-14.5); WBC 6.5 thou/uL (4.0-11.0)
--- NOTE | 2019-11-26 09:58 | NUR ---
Continue to recommend increase tube feeding to goal of 70ml/hr in next 48 hr.
[2019-11-26 16:29] LABS: BE(vivo) -4.4 mmol/L (-2 to +3); HCO3 20.3 mmol/L (22.0-26.0); PCO2 35.9 mmHg (35.0-45.0); PO2 91.6 mmHg (80.0-100.0); pH 7.371 (7.360-7.450); sO2 96.9 % (92.0-98.0)
--- NOTE | 2019-11-26 19:22 | NUR ---
CONTINUES TO PROGRESS, WEAN TRIAL FOR 3 HOURS TODAY. TOLERATING TUBE FEEDS. AFEBRILE. HR AND BP BETTER CONTROLLED WITH AMIODARONE AND DIGOXIN, NO PRNS GIVEN. FOLLOWS SIMPLE COMMANDS AND NODS HEAD YES/NO
--- NOTE | 2019-11-26 20:45 | NUR ---
ASSUMED CARE FROM DAY RN, GOT REPORT THAT OG TUBE IS AT 62CM. UPON ASESSMENT OF PT. OGT WAS FOUND TO BE AT 57CM. AUSCULTATED OGT TO CONFIRM PLACEMENT. OGT IN PLACE. INCREASED TF RATE TO 35 FROM 25ML. GOAL IS 75.
--- NOTE | 2019-11-26 21:33 | NUR ---
SPOKE WITH FATOUMATA GUPTA REGSHELDONRDING CLARAIFICATION OF ISOLATION STATUS. PATIENT IS OKAY NOT TO BE IN ENHANCED PRECAUTIONS/DROPLET PRECAUTIONS.
[2019-11-27] VITALS (29 sets, daily range): BP systolic 107–178; BP diastolic 55–125
[2019-11-27 05:59] LABS: CALCIUM 7.6 mg/dL (8.5-10.1); CREATININE 0.7 mg/dL (0.7-1.3); POTASSIUM 3.8 mmol/L (3.5-5.1)
[2019-11-27 11:09] LABS: BE(vivo) -2.3 mmol/L (-2 to +3); HCO3 21.6 mmol/L (22.0-26.0); PO2 76.3 mmHg (80.0-100.0); pH 7.421 (7.360-7.450); sO2 95.6 % (92.0-98.0)
--- NOTE | 2019-11-27 16:48 | NUR ---
JUDY reviewed chart and spoke with nursing and attending physician. Pt was extubated earlier today. JUDY spoke with pt's sister, Marquita via phone to provide update. Lengthy discussion regarding pt's hx, plan of care and eventual discharge plans. Pt is currently on a waiting list to move into [facility]. Pt's sister states pt will need a hospital bed when discharged. JUDY discussed need for auth from Medicaid for DME. JUDY discussed therapy evals and 5N eval to see if pt would be a candidate for inpt acute rehab. Pt's sister is agreeable. Pt has been to [facility] in the past. Pt's sister states pt has hx of depression and is normally on meds. Unsure of his outpatient psychiatrist. JUDY provided this info to attending physician. Requested therapy evals to be ordered. No weekend discharge planned. JUDY is following to assist as needed with discharge planning.
--- NOTE | 2019-11-27 17:05 | NUR ---
EXTUBATED AT 1222 AND PLACED ON 3LNC. LOTS OF SECRETIONS WITH FAIR COUGH. REFUSING ALL MEDS AND INTERVENTIONS. SISTER CALLED AND PHONE PUT TO PATIENTS EAR. SISTER ENCOURAGED BROTHER TO TAKE MEDS BUT HE REFUSED. POSSIBLE DEPRESSED, NO HOME MEDICATION FOR DEPRESSION NOTED. DR. HNA PAGED X 2 BUT HAVE NOT RECIEVED A CALL BACK. REINITIATED PT, OT AND ST PER PROTOCOL
--- NOTE | 2019-11-27 19:12 | NUR ---
SPOKE TO DR. HAN WITH PATIENT UPDATE. ORDER RECIEVED FOR ATIVAN 1MG IV Q4H PRN.
--- NOTE | 2019-11-27 22:58 | NUR ---
PT HAD FECAL MGT SYSTEM IN PLACE WHEN THIS RN ASSUMED PT CARE. SMALL AMOUNT LIQUID STOOL IN BAG. DAY SHIFT RN REPORT PT HAD NOT HAD MUCH OUTPUT DURING DAY SHIFT. FMS REMOVED. PT TOLERATED WELL. WILL MONITOR FOR FURTHER STOOLS.
[2019-11-28] VITALS (19 sets, daily range): BP systolic 128–178; BP diastolic 78–107
--- NOTE | 2019-11-28 00:29 | NUR ---
PT REFUSED BLOOD SUGAR FINGERSTICK.
--- NOTE | 2019-11-28 07:30 | NUR ---
PT IS ABLE TO ANSWER SOME ORIENTATION QUESTIONS, BUT SEEMS CONFUSED AT TIMES. AFEBRILE ALL NIGHT. SBP 160S-170S AT BEGINNING OF SHIFT. PRN HYDRALAZINE GIVEN. SBP IMPROVED. HR 130S-140S EARLIER IN THE SHIFT. SCHEDULED IV METOPROLOL GIVEN ORDERED. HR TEMPORARILY IMPROVED TO 110S-120S, BUT THEN INCREASED AGAIN PRIOR TO NEXT SCHEDULED DOSE OF METOPROLOL. Q2H TURN TO PREVENT SKIN BREAKDOWN. PT ENCOURAGED TO COUGH TO CLEAR SECRETIONS IN BACK OF THROAT. ORAL SUCTION PROVIDED NEEDED. FALL PRECAUTIONS IN PLACE. PT NOT PROGRESSING WELL TOWARD POC GOALS. REPORT GIVEN TO DAY SHIFT RN.
--- NOTE | 2019-11-28 14:54 | NUR ---
ALERT SPEECH DIFFICULT TO UNDERSTAND. TOOK TO CT FOR HEAD CT. O2 ON 3 L NASAL CANNULA. INCONTINENT OF LARGE AMT GREENISH LIQUID STOOL. FECAL MANAGEMENT SYSTEM INSERTED. JETT TO DD WITH CLEAR YELLOW URINE OUTPUT. DENIES PAIN. SPOKE WITH SISTER ON PHONE. TOOK MEDS WITH SIP OF WATER.
--- NOTE | 2019-11-28 16:13 | NUR ---
Pt transferred from ICU at 1500, report received from LIA Manning; transferred to bed safely. A+O to self, may be confused at time- re-oriented; paraplegic- assisted in ADLS; opacity noted at left eye. On telemetry monitoring- heart rate 120's to 130's, BP 170/102- Dr Skinner informed and asked for PRN medications, ordered PO Diltiazem- given as prescribed. BP rechecked after PO Diltiazem BP: 148/103, HR: 125. On O2 at 3lpm via nasal cannula, suctioned secretions. On Pureed diet- on swallowing precautions. On blood sugar monitoring- taken and recorded accordingly; with sliding scale insulin prescribed. With borges in place- draining well; output measured and recorded accordingly. With fecal management in place- draining dark green liquid stool, output measured and recorded accordingly. With PICC at L upper arm; dressing changed today by IV nurse, flushing well- triple lumen. Paraplegic, turned on his sides regularly; with contractures on both his arms. With upper extremity edema noted, non-weeping. Assisted and encouraged in eating and drinking. To continue monitoring patient.
[2019-11-29] VITALS (7 sets, daily range): BP systolic 119–159; BP diastolic 78–111
--- NOTE | 2019-11-29 04:18 | NUR ---
PATIENT ASSESSED AND IS ALERT X 1. SKIN WARM AND DRY. RESP EVEN AND UNLABORED. NO SKIN ISSUES EXCEPT HAS 3+ EDEMA NOTED TO BOTH ARMS AND HANDS. ELEVATED ON PILLOWS. TURNED Q 2 HOURS AND PRN. SCD'S IN PLACE. LEFT PICC FLUSHES WELL. IS ON ANTIBIOTICS AND 02 AT 3LNC. JETT CATH PATENT WITH CLEAR URINE. HAD ABOUT 1050 OUT. HAS A FECAL MANANGEMENT SYSTEM DARK GREEN IN COLOR.LUNGS CAOURSE BILATERAL. HR IN 120-130 MOST OF THE NIGHT EXCEPT FOR ABOUT 3-4 HOURS. ABOUT 0345 02 SAT 92%. LUNGS SOUND WET. DR CALLED AND RECEIVED NEW ORDERS FOR METOPOLOL 5 MG IV NOW. HE IN THE 130. TURNED FOR COMFORT. CXR ALSO ORDERED.BP WAS 149/107. AWAITING LAB RESULTS. LAB DRAWN PER PICC. METOPROLOL GIVEN PER ORDERS. HR STILL 120-130'S. PATIENT RESTING ALITTLE MORE NOW. IS A PARAPLEGIC, BLIND IN LEFT EYE.CONT TO MONITOR BP AND HR. CONT PLAN OF CARE. RESP 28. TACHYPNEIC IN BREATHING NOTED.
--- NOTE | 2019-11-29 04:58 | NUR ---
PATIENT RESP EVEN AND UNLABORED NOW. RESTING CXR JUST BRING DONE PER ORDERES. LAB ALSO DRAWN AND SENT TO LAB. 02 SAT 94%. HR NOW 128
--- NOTE | 2019-11-29 05:11 | NUR ---
PATIENT STARTING TO HAVE TACHYNEIC BREATHING AGAIN. 02 SAT 94%. RESTING . HR STILL 124.
[2019-11-29 05:56] LABS: HEMATOCRIT 33.8 % (42.0-52.0); MCH 30.8 pg (26.0-34.0); MCHC 32.7 g/dL (28.0-37.0); MCV 94.1 fL (80.0-100.0); RBC 3.59 mil/uL (4.50-6.00); RDW 19.1 % (10.5-14.5); WBC 6.3 thou/uL (4.0-11.0)
[2019-11-29 06:05] LABS: PLATELET COUNT 486 thou/uL (150-400)
[2019-11-29 06:09] LABS: ALBUMIN 2.2 g/dL (3.4-5.0); CALCIUM 8.2 mg/dL (8.5-10.1); CREATININE 0.8 mg/dL (0.7-1.3); MAGNESIUM 1.8 mg/dL (1.8-2.4); TOTAL BILIRUBIN 0.4 mg/dL (0.2-1.0); TOTAL PROTEIN 4.9 g/dL (6.4-8.2)
[2019-11-29 06:20] LABS: POTASSIUM 2.9 mmol/L (3.5-5.1)
--- NOTE | 2019-11-29 06:39 | NUR ---
DR CALLED ABOUT 0350 DR DUEÑAS ABOUT ELEVATED HR, AND ELEVATED BP. 147/107. HR 130.PATIENT HAVING TACHYPNEIC. O2 SAT 60-70%.UNABLE TO GET 02 SAT UP.NEW ORDERS TO GIVE METOPROLOL 5MG IV.AND CXR.AWAITING FOR RESULTS AND HR STILL 125-140. RAPID RESPONSE ACTIVATED AND SEE SOLID PLASTERER FLOW SHEET. SENIOR RECRUITER SEEN PATIENT RECEIVED NEW ORDERS FOR NON-REBREATHER, NG-TUBE, ABG'S. DR RUANO NOTIFIED OF K+ CRITICAL LAB AND PUL CONDITION. NG TUBE PLACED AND HE COUGH UP A HUGE SPUTUM. 02 SAT 90 AND ON NC AT 3LNC. PATIENT FEELING BETTER NOW. CONT PLAN OF CARE
--- NOTE | 2019-11-29 06:57 | NUR ---
DR RUANO CALLED AND NOT TO DO ABG'S AND GAVE HIM REPORT ON BREAZTHING STATUS, AND TO REPLACE k+ 2.9. RFEPLACED POTASSIUM REPLACEMENT.
[2019-11-29 10:47] LABS: BE(vivo) 3.9 mmol/L (-2 to +3); HCO3 26.2 mmol/L (22.0-26.0); PCO2 32.2 mmHg (35.0-45.0); PO2 37.6 mmHg (80.0-100.0); pH 7.529 (7.360-7.450); sO2 78.7 % (92.0-98.0)
[2019-11-29 10:48] LABS: ABSOLUTE NEUTROPHILS 4.9 thou/uL (1.4-8.2); ATYPICAL LYMPHS 2 %; NUCLEATED RBCS 1 /100WBC
[2019-11-29 10:49] LABS: ANISOCYTOSIS 2+
[2019-11-29 10:50] LABS: OVALOCYTES FEW; TEARDROPS FEW
--- NOTE | 2019-11-29 16:58 | NUR ---
PT CARE ASSUMED APPROX 0700. ASSESSMENTS CHARTED. PT DENIES PAIN AND SOA. O2 SAT THIS AMM WAS DIFFICULT TO MAINTAIN DUE TO EXCESSIVE SECRETIONS. O2 WAS WEANED UP UNITL ABGS RESULTED AND BIPAP INITIATED. DR RUANO AWARE. DR HAN AWARE. PT O2 WNL SINCE. HR IMPROVED MOMENTARILY. ELEVATED AT THIS TIME. DR HAN WAS CALLED BUT HAS NOT CALLED BACK WITH ORDERS. WILL PAGE AGAIN TIMELY. WILL GIVE SCHEDULED MEDS TIME FRAMES ALLOW. PT IN NO DISTRESS. NG CONTENTS WERE 1200ML AND HARRIET IN COLOR. DR HAN ALSO AWARE. REPEAT KUB RESULTS ARE PENDING AT THIS TIME. WILL AWAIT. TURNING PT Q2 HRS AND PRN. CLINICAL UPDATES GIVEN TO PT'S SISTER/NEXT OF KIN. SHE DENIES QUESTIONS OR CONCERNS REGARDING POC AFTER UPDATE. PT VS OTHERWISE STABLE AND TOLERATING POC.
--- NOTE | 2019-11-29 22:31 | NUR ---
PT LYING IN BED. NO APPARENT PAIN. JETT CATHETER AND FECAL MGMT IN PLACE. RESTING COMFORTABLY. NO NEEDS VOICED. FREQUENT OBSERVATION.
[2019-11-30] VITALS (7 sets, daily range): BP systolic 143–173; BP diastolic 95–110
[2019-11-30 05:16] LABS: CALCIUM 8.5 mg/dL (8.5-10.1); CREATININE 0.9 mg/dL (0.7-1.3); POTASSIUM 3.1 mmol/L (3.5-5.1)
--- NOTE | 2019-11-30 05:17 | NUR ---
ASSUMED PT CARE AT 0000. NO SIGN OF DISTRESS NOTED IN PT. PT IS ON BIIPAP. VITAL SIGNS STABLE WITH THE EXCEPTION OF ELEVATED BLOOD PRESSURE. DENIES ANY PAIN. JETT CATH AND FECAL MANAGEMENT TUBE IN PLACE. CONTINUE TO MONITOR PT. DENIES ANY FURTHER NEEDS AT THIS TIME.
[2019-11-30 06:48] LABS: BE(vivo) 5.6 mmol/L (-2 to +3); HCO3 28.5 mmol/L (22.0-26.0); PCO2 35.6 mmHg (35.0-45.0); PO2 87.1 mmHg (80.0-100.0); pH 7.522 (7.360-7.450); sO2 97.4 % (92.0-98.0)
--- NOTE | 2019-11-30 11:46 | NUR ---
Pt without adequate nutrition past 11 days (TF never reached goal while intubated and has been npo status). Recommend consideration of TPN to start 40ml/hr and increase to goal of 85ml/hr 15% dex, 5%AA and 2.9%lipids
--- NOTE | 2019-11-30 13:45 | NUR ---
[facility] reviewed and not accepting of patient reports medications too expensive. emailed [employer] list to dtr MS Gonzalez to review. She will return call to casemgt. updated phys and RN.
--- NOTE | 2019-11-30 16:28 | NUR ---
5N CONSULT RECEIVED ON THIS Pt. Pt SEEN BY RIMA DANIELS. CONTINUING TO FOLLOW THIS Pt WITH REGARDS TO ACUTE REHAB NEEDS AND FOLLOW THERAPY NOTES WELL. THANK YOU FOR THIS CONSULT.
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
[2019-12-01 05:27] VITALS: BP 154/102
[2019-12-01 06:52] LABS: ALBUMIN 2.4 g/dL (3.4-5.0); CALCIUM 8.4 mg/dL (8.5-10.1); CREATININE 0.8 mg/dL (0.7-1.3); MAGNESIUM 2.2 mg/dL (1.8-2.4); POTASSIUM 3.2 mmol/L (3.5-5.1); TOTAL BILIRUBIN 0.4 mg/dL (0.2-1.0)
[2019-12-01 07:31] VITALS: BP 140/98
--- NOTE | 2019-12-01 08:05 | NUR ---
PATIENT ALERT.FOLLOWS COMMANDS.ON BIPAP.NO SIGNS OF GRIMACING OR PAIN NOTED.REPOSITIONED Q2 HOURS AND NEEDED.NGT TO LIS.JETT TO DD.RECTAL TUBE INTACT.MONITOR SHOWS TACHY.ON METOPROLOL IV.POC CONTINUED.
[2019-12-01 12:05] VITALS: BP 159/98
[2019-12-01 12:27] LABS: HEMATOCRIT 30.9 % (42.0-52.0); MCH 30.6 pg (26.0-34.0); MCHC 32.3 g/dL (28.0-37.0); MCV 94.8 fL (80.0-100.0); RBC 3.26 mil/uL (4.50-6.00); RDW 19.3 % (10.5-14.5)
--- NOTE | 2019-12-01 14:42 | NUR ---
Patient cont with ileus, abd distention, and weakness. Sp with sister regarding 5N following but possibility not medically stable for acute rehab. Discussed LTAC and sister agreeable for [facility] to eval. DC senior materials planner to fax referral.
--- NOTE | 2019-12-01 16:00 | NUR ---
FAXED REFERRAL TO [facility] SPOKE WITH NOLAN IN ADM SHE RECEIVED REFERRAL AND WILL REVIEW. DP TO FOLLOW.
[2019-12-01 16:44] VITALS: BP 179/101
--- NOTE | 2019-12-01 17:37 | NUR ---
PT CARE ASSUMED APPROX 0700. ASSESSMENTS CHARTED. PT DENIES PAIN AND SOA. HR SLIGHLTY ELEVATED THIS SHIFT. VITAL SIGNS OTHERWISE STABLE. PT RETUNRED TO BIPAP AT THIS TIME DUE TO DESATTING. HE CONTINUED TO DENY SOA. TOLEARTING POC. PT'S NEXT OF KIN GIVEN CLINICAL UPDATE. SHE DENIED QUESTIONS OR CONCERNS REGARDING POC AFTER UPDATE. TURNING PT Q2HRS AND PRN. K+ REPLACED THIS SHIFT. STILL REPLACING. DR JASON AWARE OF GI CONTENTS COLOR AND AMOUNT. NEW ORDERS TO POC. NO DISTRESS NOTED.
[2019-12-01 20:00] VITALS: BP 150/89
[2019-12-02 05:06] VITALS: BP 142/92
[2019-12-02 05:49] LABS: HEMATOCRIT 28.1 % (42.0-52.0); MCH 30.7 pg (26.0-34.0); MCV 95.9 fL (80.0-100.0); RBC 2.93 mil/uL (4.50-6.00); WBC 6.5 thou/uL (4.0-11.0)
--- NOTE | 2019-12-02 07:36 | NUR ---
PATIENTS CARES WERE ASSUMED AT SHIFT CHANGE. PATIENT WAS ASSESSED AND MEDS WERE PASSED. ORAL CARE WAS GIVEN BEFORE BED. PATIENTS SPEECH WAS CLEARER AFTER THE ORAL CARE WAS DONE. HOURLY ROUNDS WERE MADE . THE BED IS IN A LOW AND LOCKED POSITION.
--- NOTE | 2019-12-02 07:38 | NUR ---
PATIENTS CARES WERE ASSUMED AT SHIFT CHANGE.THE PATIENT WAS ASSESSED AND MEDS WERE PASSED. PATIENTS HEART RATE WAS TACKY THIS SHIFT. PATIENT HAS BEEN NPO SINCE MIDNIGHT. PATIENT IS AWARE OF PLAN TODAY MAY BE A STRESS TEST AND A POSSIBLE CATH. PATIENT STATED HE WILL NOT DO THE STRESS TEST DUE TO HE FELT SO BAD THE LAST TIME. TEACHING WAS DONE IN REGARDS TO PATIENTS POSITIVE LAB RESSULTS OF METH AND HIS HEARTS 10 TO 15 % EJECTION FACTURE ARE NOT COMPATABLE. IN HIS BEST INTEREST HE WAS INCURAGED TO CONSIDER A HABIT CHANGE. HOURLY ROUNS WERE MADE AND THE BED IS IN A LOW AND LOCKED POSITION.
[2019-12-02 07:40] VITALS: BP 130/106
[2019-12-02 08:35] LABS: CREATININE 0.8 mg/dL (0.7-1.3)
[2019-12-02 08:37] LABS: POTASSIUM 2.9 mmol/L (3.5-5.1)
[2019-12-02 11:22] VITALS: BP 123/81
--- NOTE | 2019-12-02 14:47 | NUR ---
Nursing Note written on 12/02/19 @0738 was ellis on the [place] patient. unable to remove however a text was placed this is ellis on the wrong patient. Physician notified.
--- NOTE | 2019-12-02 16:19 | NUR ---
Spoke with RN, phys and sister. Discussed plan for [facility]. phys sp with sister today and told casemgt likely tomorrow. Sister reports phys told her in a few days. Tenative plan for [facility] transfer in am. Updated Emma liason.
[2019-12-02 16:25] VITALS: BP 106/73
--- NOTE | 2019-12-02 17:49 | NUR ---
PT CARE ASSUMED APPROX 0700. ASSESSMENTS CHARTED. PT DENIES SOA. REPORTS PAIN TO SHOULDERS. [employer] PACKS ARE MANAGING PAIN PER PT REPORT. TURNING PT Q2 HRS AND PRN. PT TOLERATING POC. NGT HAD ALMOST NO OUTPUT. PT AWAKE MORE TODAY. K+ REPLACED THIS SHIFT. VSS. BS WNL. NO DISTRESS NOTED.
[2019-12-02 20:00] VITALS: BP 109/67
[2019-12-03 00:19] VITALS: BP 109/69
--- NOTE | 2019-12-03 01:04 | NUR ---
1944 INCONTINENT LARGE AMOUNT OF STOOL AROUND FECAL MANAGMENT TUBE. CLEANED UP AND PERICARE DONE, LINENS CHANGED. SPOKE WITH SON ZORAN HE JUST FOUND OUT DAD WAS IN HOSPITAL.
[2019-12-03 05:00] VITALS: BP 134/81
--- NOTE | 2019-12-03 05:09 | NUR ---
SLEPT MOST OF SHIFT. TOLERATED BIPAP. O2 SAT MONITOR DIFFICULT TO READ SATURATION BUT SPOT CHECKS SATS IN 90'S%. RECTAL TUBE IN PLACE WITH LEAKAGE AROUND. PERICARE PRN. REPOSITIONED PRN FOR COMFORT AND SKIN CARE. WORKING ON GOALS AND PLAN OF CARE FOR NOC. PROGRESSING SLOWLY TOWARDS DISCHARGE GOALS TO KINDRAD. NO COMPLAINTS OF PAIN. CONTINUE TO ASSES CLOSELY.
[2019-12-03 06:30] LABS: ALBUMIN 1.8 g/dL (3.4-5.0); CALCIUM 7.6 mg/dL (8.5-10.1); CREATININE 0.7 mg/dL (0.7-1.3); MAGNESIUM 1.5 mg/dL (1.8-2.4)
[2019-12-03 06:32] LABS: POTASSIUM 2.9 mmol/L (3.5-5.1)
[2019-12-03 07:40] VITALS: BP 103/56
--- NOTE | 2019-12-03 10:42 | NUR ---
DC to [facility] on hold due to worsening resp failure. Emma sarah updated and following along. They will need updates and to confirm mo medicaid auth to accept. Pt's sister will need updated once pt is dc ready.
[2019-12-03 11:40] VITALS: BP 91/42
--- NOTE | 2019-12-03 14:29 | NUR ---
ASSUMED CARE OF PT THIS A.M. AT SHIFT CHANGE, PER REPORT PT RESPONDS INCOMPREHENSIBLE SOUNDS, INTERMITTENTLY. TOUCHED PT'S ARM WHEN DOING CARES, HE NODS YES TO WARM BLANKETS AND CHANGING CHANNELS, CANNOT TELL WHAT HE SAYS FOR WHICH CHANNELS. REPOSITIONED FREQUENTLY AND PLANNED ON DOING ORAL CARE WHEN RT REMOVED BIPAP AND PLACED ON 02 NC. WHILE IN ANOTHER PT'S ROOM IT WAS REPORTED PTS HR DROPPED TO 30S IMMEIDATELY AND ANOTHER RN CHECKED ON PT. HE HAD PASSED. THIS RN AND TIRE RECAPPER TOOK CARE OF ALL PAPERWORK AND REMOVAL OF PICC LINE, IVS, TELE. NG WAS REMOVED PRIOR PER GI ORDERS PT WAS TO HAVE A SWALLOW EVAL. OTHER FLOAT RN IS HANDLING ALL CALLS/PAPERWORK INVOLVED. SHE'D HAD PT ANOTHER SHIFT THIS WEEK SO WAS FAMILIAR WITH HIM.
--- NOTE | 2019-12-03 14:47 | NUR ---
PT AT 1152. PT REMOVED FROM COMPUTER BY THIS NURSE AT 1444.
== END 2019-12-03 14:44 | DRG 870 ==
LOC: ER 08:51 → 2N 13:47 → EROBS 13:47 → 3W 16:40 → ICU 11-19 16:14 → 2N 11-28 14:23
PROVIDERS: Emergency Medicine; Internal Medicine Infectious Disease; Internal Medicine Pulmonary Disease; Nurse Practitioner; Nurse Practitioner Family; Specialist; ADMIT Hospitalist
PROC: 02HV33Z Insertion of Infusion Device into Superior Vena Cava, Percutaneous Approach (ICD-10-PCS; principal; 2019-11-19)
PROC: 5A1955Z Respiratory Ventilation, Greater than 96 Consecutive Hours (ICD-10-PCS; principal; 2019-11-19)
PROC: 0BH17EZ Insertion of Endotracheal Airway into Trachea, Via Natural or Artificial Opening (ICD-10-PCS; principal; 2019-11-19)
PROC: 5A09357 Assistance with Respiratory Ventilation, Less than 24 Consecutive Hours, Continuous Positive Airway Pressure (ICD-10-PCS; principal; 2019-11-19)
PROC: 0BC38ZZ Extirpation of Matter from Right Main Bronchus, Via Natural or Artificial Opening Endoscopic (ICD-10-PCS; 2019-11-25)
PROC: 0BC68ZZ Extirpation of Matter from Right Lower Lobe Bronchus, Via Natural or Artificial Opening Endoscopic (ICD-10-PCS; 2019-11-25)
PROC: 5A09357 Assistance with Respiratory Ventilation, Less than 24 Consecutive Hours, Continuous Positive Airway Pressure (ICD-10-PCS; 2019-11-29)
PROC: 5A09357 Assistance with Respiratory Ventilation, Less than 24 Consecutive Hours, Continuous Positive Airway Pressure (ICD-10-PCS; 2019-11-30)
PROC: 5A09357 Assistance with Respiratory Ventilation, Less than 24 Consecutive Hours, Continuous Positive Airway Pressure (ICD-10-PCS; 2019-12-01)
PROC: 5A09357 Assistance with Respiratory Ventilation, Less than 24 Consecutive Hours, Continuous Positive Airway Pressure (ICD-10-PCS; 2019-12-02)
PROC: 5A09357 Assistance with Respiratory Ventilation, Less than 24 Consecutive Hours, Continuous Positive Airway Pressure (ICD-10-PCS; 2019-12-03)
DX: A41.9 Sepsis, unspecified organism (principal); R65.21 Severe sepsis with septic shock; J69.0 Pneumonitis due to inhalation of food and vomit; G92 Toxic encephalopathy; N39.0 Urinary tract infection, site not specified; E46 Unspecified protein-calorie malnutrition; G82.20 Paraplegia, unspecified; K56.7 Ileus, unspecified; T17.590A Other foreign object in bronchus causing asphyxiation, initial encounter; E87.6 Hypokalemia; M06.9 Rheumatoid arthritis, unspecified; F10.20 Alcohol dependence, uncomplicated; Z20.828 Contact with and (suspected) exposure to other viral communicable diseases; E83.42 Hypomagnesemia; B96.20 Unspecified Escherichia coli [E. coli] as the cause of diseases classified elsewhere; Z66 Do not resuscitate; X58.XXXA Exposure to other specified factors, initial encounter; Z88.8 Allergy status to other drugs, medicaments and biological substances; Z68.23 Body mass index [BMI] 23.0-23.9, adult; Z88.0 Allergy status to penicillin; Y93.89 Activity, other specified; Y92.89 Other specified places as the place of occurrence of the external cause; Y99.8 Other external cause status
CPT/HCPCS: 10078; 10081; 10879; 27000